=== PATIENT | male | born 1990 | race Caucasian/White ===

== ENCOUNTER 2019-04-28 04:41 | Emergency (ER) | payer OTHER, SELFPAY ==
[2019-04-28 04:45] VITALS: BP 150/89; PULSE 103; RESP 15; TEMP 36.6; O2SAT 97; BMI 25.6
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
== END 2019-04-28 05:08 | disposition home or self-care (01) ==
LOC: ED 05:00
PROVIDERS: Emergency Provider Emergency Medicine
DX: Z02.89 Encounter for other administrative examinations (principal); V49.3XXA Car occupant (driver) (passenger) injured in unspecified nontraffic accident, initial encounter; F10.920 Alcohol use, unspecified with intoxication, uncomplicated
CPT/HCPCS: 99282